=== PATIENT | male | born 1930 | race Hispanic/Latino ===

== ENCOUNTER 2018-07-12 08:00 | Day surgery (SDC) | payer MEDICARE ==
[2018-07-11 11:00] VITALS: BP 164/76
[2018-07-11 11:22] LABS: BASOPHILS % (AUTO) 1.1 % (0.0-5.0); EOSINOPHILS % (AUTO) 2.5 % (0.0-8.0); HEMATOCRIT 43.7 % (42-54); LYMPHOCYTES % (AUTO) 32.8 % (21.0-51.0); MEAN CORPUSCULAR HEMOGLOBIN 30.2 pg (27.0-33.0); MEAN CORPUSCULAR HGB CONC 33.2 g/dL (32.0-36.0); MEAN CORPUSCULAR VOLUME 90.8 fL (79-99); NEUTROPHILS % (AUTO) 53.6 % (40.0-77.0); PLATELET COUNT (AUTO) 259 K/uL (130-400); RED BLOOD CELL COUNT(AUTO) 4.82 MIL/uL (4.50-6.20); WHITE BLOOD COUNT (AUTO) 6.8 K/uL (4.8-10.8)
[2018-07-11 11:32] LABS: CREATININE 1.1 mg/dL (0.5-1.5)
[2018-07-11 11:46] LABS: INR 1.01 (0.85-1.15); PARTIAL THROMBOPLASTIN TIME 28.9 SEC (26.3-35.5); PROTHROMBIN TIME 10.6 SEC (9.6-11.6)
--- NOTE | 2018-07-11 13:20 | NUR ---
NOTE PT SHOWED ME HIS PACEMAKER SITE AT [facility], THERE WAS SOME REDNESS AND PROTRUSION NOTED TO SITE. CONFIRMED WITH DR. MADRID, AND PER DR. MADRID, HE HAD SEEN HIS PM SITE YESTERDAY AND THAT IS WHY WE ARE DOING HIS PROCEDURE TOMORROW.
[~2018-07-12] VITALS: Ht 152.4 cm; Wt 81.1 kg
[2018-07-12] VITALS (9 sets, daily range): BP systolic 123–142; BP diastolic 56–72
[~2018-07-12 08:00] MED LIST: ALEVE PO; LEVOTHYROXINE PO; SODIUM CHLORIDE 0.9% 1000ML 1,000 ML IV SCH; VANCOMYCIN 1GM+NS 250ML 250 ML IV SCH
[2018-07-12] MEDS ORDERED: VANCOMYCIN 1GM+NS 250ML 500 ML IV ONE (09:46)
[2018-07-12] MEDS ORDERED: LIDOCAINE HCL 1% MDV 50ML VIAL ONE (09:46)
[2018-07-12] MEDS ORDERED: BUPIVACAINE/PF 0.25% 30ML VIAL IJ ONE (09:47)
[2018-07-12] MEDS ORDERED: MIDAZOLAM HCL 1 MG/ML 2ML VIAL ONE ×4 (09:48→10:49)
[2018-07-12] MEDS ORDERED: MEPERIDINE-PF 25 MG/ML SYG ONE (09:48)
[2018-07-12] MEDS ORDERED: MEPERIDINE-PF 50 MG/ML SYG ONE ×2 (10:09→10:49)
[2018-07-12] MEDS ORDERED: THROMBIN-JMI 5000 UNIT/VIAL TP ONE (10:55)
[2018-07-12] MEDS ORDERED: LEVOFLOXACIN 500 MG TABLET PO SCH (11:15)
[2018-07-12] MEDS ORDERED: ACETAMINOPHEN-CODEINE 300/30MG TAB PO PRN (11:15)
[2018-07-12] MEDS ORDERED: ACETAMINOPHEN 325 MG TAB PO PRN (11:15)
[2018-07-12] MEDS ORDERED: DOXYCYCLINE HYCLATE 100 MG TABLET PO SCH (11:15)
[2018-07-12] MEDS ORDERED: DOXY100T2 PO (11:29)
[2018-07-12] MEDS ORDERED: TRAM50TA4 PO (11:29)
[2018-07-12] MEDS ORDERED: LEVO500T2 PO (11:29)
[2018-07-12] MEDS ORDERED: FLUMAZENIL 0.1MG/1ML 5ML VIAL IV ONE (11:46)
--- NOTE | 2018-07-12 13:08 | NUR ---
REPORT RECEIVED REPORT FROM Miriam CALDWELL RN. PT [id number]. SON AT BEDSIDE. PRESSURE DRSG IN PLACE TO LEFT UPPER CHEST. NO SWELLING, BLEEDING NOTED TO SITE. SOFT TO TOUCH. CALL LIGHT IN REACH. DENIES ANY DISCOMFORT AT THIS TIME.
--- NOTE | 2018-07-12 13:08 | NUR ---
GAVE REPORT TO ANJU TODD , NO CONCERNS, INTRODUCE NURSE TO PATIENT AND FAMILY.
--- NOTE | 2018-07-12 13:30 | NUR ---
SITE CHECK SITE TO LEFT UPPER CHEST SOFT TO TOUCH. NO BLEEDING, OOZING NOTED TO SITE. PRESSURE DRSG IN PLACE.
--- NOTE | 2018-07-12 14:00 | NUR ---
SITE CHECK SITE TO LEFT UPPER CHEST SOFT TO TOUCH. NO BLEEDING, OOZING NOTED TO SITE. PRESSURE DRSG IN PLACE
--- NOTE | 2018-07-12 14:33 | NUR ---
SITE CHECK SITE TO LEFT UPPER CHEST SOFT TO TOUCH. NO BLEEDING, OOZING NOTED TO SITE. PRESSURE DRSG IN PLACE
--- NOTE | 2018-07-12 15:30 | NUR ---
SITE CHECK SITE CHECK TO LEFT UPPER CHEST SOFT TO TOUCH. NO BLEEDING, OOZING NOTED. PRESSURE DRSG TO LEFT UPPER CHEST IN PLACE. INFORMED SON TO REMOVE PRESSURE DRSG TOMORROW MORNING PER DR. MADRID ORDERS. DISCHARGE INSTRUCTIONS GIVEN TO PT AND PTS SON ALONG WITH PRESCRIPTION. BOTH VERBALIZED UNDERSTANDING. NO OTHER QUESTIONS AT THIS,
== END 2018-07-12 15:40 | disposition home or self-care (01) ==
LOC: DAH 08:00
PROVIDERS: ATTEND Internal Medicine Cardiovascular Disease
DX: T82.897A Other specified complication of cardiac prosthetic devices, implants and grafts, initial encounter (principal); E03.9 Hypothyroidism, unspecified; Z79.899 Other long term (current) drug therapy; Z98.890 Other specified postprocedural states
CPT/HCPCS: 33222; 36415; 80048; 85025; 85610; 85730; 87070; 87076; 93005; A4606; J2175 ×3; J2250 ×4; J3370; J3490 ×4; 99156; 99157